=== PATIENT | male | born 1975 | race Caucasian/White ===

== ENCOUNTER 2018-11-30 10:30 | Inpatient (IN) | payer OTHER ==
[~2018-11-30] VITALS: Ht 175.3 cm; Wt 90.7 kg
[2018-11-30] MEDS ORDERED: CLONAZEPAM0.5 MG PO (11:34)
[2018-11-30] MEDS ORDERED: LITHIUM CARBON600 MG PO (11:35)
[2018-11-30] MEDS ORDERED: COZAAR25 MG PO (11:36)
[2018-11-30] MEDS ORDERED: LAMICTAL200 MG PO (11:36)
[2018-11-30] MEDS ORDERED: GABAPENTIN100 MG PO (11:37)
[2018-12-16] MEDS ORDERED: PERCOCET 5-3251 EACH PO (07:47)
[2018-12-16] MEDS ORDERED: OMEPRAZOLE20 MG PO (07:47)
[2018-12-16] MEDS ORDERED: INTESTINEX680 M1 PO (07:47)
== END 2018-12-16 08:59 | disposition home or self-care (01) | DRG 330 ==
LOC: SURH 12-06 07:00 → O/R 12-13 06:06 → SURG 12-13 06:06
PROVIDERS: ADMIT Surgery
PROC: 0DTJ4ZZ Resection of Appendix, Percutaneous Endoscopic Approach (ICD-10-PCS; 2018-12-13)
PROC: 0DJD8ZZ Inspection of Lower Intestinal Tract, Via Natural or Artificial Opening Endoscopic (ICD-10-PCS; 2018-12-13)
PROC: 0DTN4ZZ Resection of Sigmoid Colon, Percutaneous Endoscopic Approach (ICD-10-PCS; principal; 2018-12-13 14:00)
DX: K57.20 Diverticulitis of large intestine with perforation and abscess without bleeding (principal); K35.890 Other acute appendicitis without perforation or gangrene; K66.0 Peritoneal adhesions (postprocedural) (postinfection); I10 Essential (primary) hypertension; E78.49 Other hyperlipidemia